=== PATIENT | male | born 1980 ===

== ENCOUNTER 2017-04-09 00:18 | Observation (INO) | payer MEDICAID ==
[2017-04-09 00:18] VITALS: BMI 31.1
[2017-04-09 00:33] VITALS: RESP 16; TEMP 98.8
--- NOTE | 2017-04-09 00:52 | C.PDOC ---
History Of Present Illness 36 year old male who presents to the ER stating "I am here to turn myself in". Patient states he escaped from [facility] today after being told he was going to be put in a locked unit and did not like it. Patient was admitted for suicidal attempt, he claims he has been there for months and he has always been able to leave to get a cigarette. However, today the staff was trying to find him and when they did they told him he would have to be detained in a locked unit due to elopement. Patient states he is here to turn himself in and is willing to return to [place], even to a locked unit. Patient notes he "still doesn't feel right", but denies any recent suicide attempt. Time Seen by Provider: 04/09/17 00:36 Chief Complaint (Nursing): Psychiatric Evaluation History Per: Patient History/Exam Limitations: no limitations Onset/Duration Of Symptoms: Days Current Symptoms Are (Timing): Still Present Suicide/Self Injury Attempted (Context): None Associated Symptoms: denies: Depression, Suicidal Thoughts, Suicidal Plan Involuntary Hold By: None Recent travel outside of the [place]: No Past Medical History Reviewed: Historical Data, Nursing Documentation, Vital Signs Vital Signs: Last Vital Signs Temp 98.8 F 04/09/17 00:30 Pulse 104 H 04/09/17 00:30 Resp 16 04/09/17 00:30 BP 130/85 04/09/17 00:30 Pulse Ox 98 04/09/17 02:26 - Medical History PMH: Anxiety, Bipolar Disorder, Depression, HTN, Hypercholesterolemia, Schizophrenia Surgical History: Appendectomy (30 years ago) - [facility] Procedures GROUP EYEGLASS FRAMES POLISHER FOR SUBSTANCE ABUSE TREATMENT, PSYCHOEDUCATION (09/15/16) GROUP PSYCHOTHERAPY (09/15/16) INDIVID PSYCHOTHERAP NEC (11/09/14) INDIVIDUAL PSYCHOTHERAPY, SUPPORTIVE (09/15/16) MEDICATION MANAGEMENT (09/27/16) MEDS MGMT FOR SUBSTANCE ABUSE TREATMENT, OTH REPL MED (09/15/16) OTHER GROUP THERAPY (11/09/14) PSYCHIAT DRUG THERAP NEC (11/09/14) SUPPOR VERBAL PSYCHOTHER (02/20/13) Family History: States: Unknown Family Hx - Social History Hx Tobacco Use: Yes (1 ppd) Hx Alcohol Use: Yes Hx Substance Use: No - Immunization History Hx Tetanus Toxoid Vaccination: No Hx Influenza Vaccination: No Hx Pneumococcal Vaccination: No Review Of Systems Constitutional: Negative for: Fever, Chills Gastrointestinal: Negative for: Nausea, Vomiting, Diarrhea Psych: Negative for: Suicidal ideation Physical Exam - Physical Exam Appears: Non-toxic, No Acute Distress Skin: Normal Color, Warm, Dry Head: Atraumatic, Normacephalic Oral Mucosa: Moist Chest: Symmetrical, No Tenderness Cardiovascular: Rhythm Regular, No Murmur Respiratory: Normal Breath Sounds, No Rales, No Rhonchi, No Wheezing Gastrointestinal/Abdominal: Soft, No Tenderness Neurological/Psych: Oriented x3, Normal Speech, Normal Cognition ED Course And Treatment O2 Sat by Pulse Oximetry: 98 (Room air) Pulse Ox Interpretation: Normal Medical Decision Making Medical Decision Making: Plan: * Blood work ED OBSERVATION Date of observation admission: 04/09/17 Time of observation admission: 00:45 - Observation admission statement Patient is being placed in observation because:: SUICIDAL IDEATION - Goals of Observation Goals of observation are:: PSYCH EVAL - Progress Note Progress Note: 04/09/17 00:51 D/W CRISIS WILL EVAL IN ER 04/09/17 03:29 D/W CRISIS PT TO BE PICKED UP BY [facility] DC IN [facility] 04/09/17 03:33 Disposition Counseled Patient/Family Regarding: Studies Performed, Diagnosis - Disposition Disposition: HOME/ ROUTINE Disposition Time: 04:30 Condition: STABLE - Clinical Impression Clinical Impression: Schizoaffective disorder - Scribe Statement The provider has reviewed the documentation as recorded by the Scribyordy Lopez All medical record entries made by the Chinoibyordy were at my direction and personally dictated by me. I have reviewed the chart and agree that the record accurately reflects my personal performance of the history, physical exam, medical decision making, and the department course for this patient. I have also personally directed, reviewed, and agree with the discharge instructions and disposition.
[2017-04-09 01:43] LABS: RBC URINE < 1 /hpf (0-3); URINE BILIRUBIN NEGATIVE (NEGATIVE); URINE BLOOD NEGATIVE (NEGATIVE); URINE COLOR Yellow (YELLOW); URINE GLUCOSE (UA) NORMAL (Normal); URINE KETONE NEGATIVE (NEGATIVE); URINE LEUKOCYTE ESTERASE NEG Leu/uL (Negative); URINE PROTEIN NEGATIVE (NEGATIVE); URINE UROBILINOGEN NORMAL mg/dL (0.2-1.0); WBC URINE 1 /hpf (0-5)
[2017-04-09 04:22] VITALS: BP 111/72; PULSE 82; O2SAT 97
== END 2017-04-09 04:23 | disposition home or self-care (01) ==
LOC: C.ER 00:18 → C.9OBSV 00:45
PROVIDERS: ADMIT Emergency Medicine; ATTEND Emergency Medicine
DX: F25.9 Schizoaffective disorder, unspecified (principal); I10 Essential (primary) hypertension; F31.9 Bipolar disorder, unspecified; E78.00 Pure hypercholesterolemia, unspecified; F41.9 Anxiety disorder, unspecified; F17.210 Nicotine dependence, cigarettes, uncomplicated
CPT/HCPCS: 80324; 80345; 80346; 80349; 80353; 80358; 80361; 81001; 83992; 99284; G0378

== ENCOUNTER → 2017-05-29 05:09 | Emergency (ER) | payer MEDICAID ==
[2017-05-29 05:09] VITALS: BMI 31.1
== END | disposition left against medical advice (07) ==
LOC: C.ER 05:09
DX: Z02.89 Encounter for other administrative examinations (principal); Z00.8 Encounter for other general examination

== ENCOUNTER 2017-06-02 00:23 | Emergency (ER) | payer MEDICAID ==
[2017-06-02 00:23] VITALS: BMI 31.1
[2017-06-02 01:51] LABS: BASO # 0.1 K/uL (0.0-0.2); BASO % 0.8 % (0.0-2.0); EOS # 0.1 K/uL (0.0-0.7); EOS % 0.9 % (0.0-4.0); HEMATOCRIT 42.8 % (35.0-51.0); LYMPH # 3.2 K/uL (1.0-4.3); LYMPH % 25.3 % (20.0-40.0); MEAN CELL VOLUME 83.3 fL (80.0-94.0); MEAN CORPUSCULAR HEMOGLOBIN 28.8 pg (27.0-31.0); MEAN CORPUSCULAR HGB CONC 34.6 g/dL (33.0-37.0); MEAN PLATELET VOLUME 8.6 fL (7.2-11.7); MONO # 0.7 K/uL (0.0-0.8); MONO % 5.7 % (0.0-10.0); RED CELL DISTRIBUTION WIDTH 13.6 % (11.5-14.5); WHITE BLOOD COUNT 12.7 K/uL (4.8-10.8)
[2017-06-02 02:14] LABS: CHLORIDE 103 mmol/L (98-107)
[2017-06-02 02:15] LABS: POTASSIUM 3.6 mmol/L (3.6-5.2); SODIUM 141 mmol/L (132-148)
[2017-06-02 02:17] LABS: ALB/GLOB RATIO 1.2 (1.0-2.1); ALKALINE PHOSPHATASE 52 U/L (38-126); ALT/SGPT 71 U/L (21-72); AST/SGOT 96 U/L (17-59); BILIRUBIN,TOTAL 0.8 mg/dL (0.2-1.3); BLOOD UREA NITROGEN 12 mg/dL (9-20); CARBON DIOXIDE 20 mmol/L (22-30); GFR AFRICAN-AMERICAN > 60; GLUCOSE,RANDOM 117 mg/dL (75-110); TOTAL PROTEIN 8.3 g/dL (6.3-8.3)
[2017-06-02 02:18] LABS: ALCOHOL SERUM 136 mg/dl (0-10); CALCIUM 9.2 mg/dl (8.6-10.4)
[2017-06-02 03:04] VITALS: TEMP 98.8
[2017-06-02 03:37] LABS: RBC URINE < 1 /hpf (0-3); URINE BILIRUBIN NEGATIVE (NEGATIVE); URINE BLOOD NEGATIVE (NEGATIVE); URINE COLOR Yellow (YELLOW); URINE GLUCOSE (UA) NORMAL (Normal); URINE KETONE TRACE mg/dL (NEGATIVE); URINE LEUKOCYTE ESTERASE NEG Leu/uL (Negative); URINE PROTEIN NEGATIVE (NEGATIVE); URINE UROBILINOGEN NORMAL mg/dL (0.2-1.0); WBC URINE < 1 /hpf (0-5)
[2017-06-02 05:49] VITALS: BP 138/82; PULSE 123; RESP 18; O2SAT 95
--- NOTE | 2017-06-02 06:07 | C.PDOC ---
Time Seen by Provider: 06/02/17 00:33 Chief Complaint (Nursing): Psychiatric Evaluation History Per: Patient, EMS Onset/Duration Of Symptoms: Unknown (tonight) Current Symptoms Are (Timing): Still Present Suicide/Self Injury Attempted (Context): None Modifying Factor(s): Alcohol Severity: Moderate Associated Symptoms: Agitation Additional History Per: Prior Records Past Medical History Reviewed: Historical Data, Nursing Documentation, Vital Signs Vital Signs: Last Vital Signs Temp 98.8 F 06/02/17 03:04 Pulse 123 H 06/02/17 05:47 Resp 18 06/02/17 05:47 BP 138/82 06/02/17 05:47 Pulse Ox 95 06/02/17 05:47 - Medical History PMH: Anxiety, Bipolar Disorder, Depression, HTN, Hypercholesterolemia, Schizophrenia Surgical History: Appendectomy (30 years ago) - [facility] Procedures GROUP ARMY MANAGER FOR SUBSTANCE ABUSE TREATMENT, PSYCHOEDUCATION (09/15/16) GROUP PSYCHOTHERAPY (09/15/16) INDIVID PSYCHOTHERAP NEC (11/09/14) INDIVIDUAL PSYCHOTHERAPY, SUPPORTIVE (09/15/16) MEDICATION MANAGEMENT (09/27/16) MEDS MGMT FOR SUBSTANCE ABUSE TREATMENT, OTH REPL MED (09/15/16) OTHER GROUP THERAPY (11/09/14) PSYCHIAT DRUG THERAP NEC (11/09/14) SUPPOR VERBAL PSYCHOTHER (02/20/13) Family History: States: Unknown Family Hx - Social History Hx Tobacco Use: Yes (1 ppd) Hx Alcohol Use: Yes Hx Substance Use: Yes - Immunization History Hx Tetanus Toxoid Vaccination: No Hx Influenza Vaccination: No Hx Pneumococcal Vaccination: No Review Of Systems Except As Marked, All Systems Reviewed And Found Negative. Constitutional: Negative for: Fever Cardiovascular: Negative for: Chest Pain Respiratory: Negative for: Shortness of Breath Gastrointestinal: Negative for: Vomiting, Abdominal Pain Musculoskeletal: Negative for: Neck Pain Neurological: Negative for: Weakness, Numbness, Seizures Physical Exam - Physical Exam Appears: Non-toxic, No Acute Distress, Agitated Skin: Normal Color, Warm, Dry, No Rash Head: Atraumatic, Normacephalic Eye(s): bilateral: PERRL Neck: Normal ROM, Supple Cardiovascular: Rhythm Regular Respiratory: Normal Breath Sounds, No Accessory Muscle Use Gastrointestinal/Abdominal: Soft, No Tenderness Extremity: Normal ROM, No Deformity Neurological/Psych: Oriented x3, Normal Motor, Normal Sensation ED Course And Treatment - Laboratory Results Result Diagrams: 06/02/17 01:48 06/02/17 01:48 ECG: Interpreted By Me, Viewed By Me ECG Rhythm: Sinus Tachycardia, Nonspecific Changes Rate From EC O2 Sat by Pulse Oximetry: 95 Pulse Ox Interpretation: Normal Progress Note: After medication pt is now improved. Pt was evaluated by the tail board worker who d/w Dr. Nguyen, they psychiatrically cleared pt for discharge. Reassessment Condition: Improved Disposition Counseled Patient/Family Regarding: Studies Performed, Diagnosis, Need For Followup - Disposition Disposition: HOME/ ROUTINE Disposition Time: 06:09 Condition: STABLE Additional Instructions: Follow up with outpatient mental health. Return to the ER if you develop suicidal or homicidal thoughts, worsening of symptoms or if you have any other concerns. Instructions: Alcohol Intoxication (ED) Forms: [facility] ([place]) - Clinical Impression Clinical Impression: Alcohol intoxication, Agitation
--- NOTE | 2017-06-03 23:14 | CARD ---
APPROVED REPORT EKG Measurement Heart [id number] <Conclusion> Sinus tachycardia Nonspecific T wave abnormality Abnormal ECG
== END 2017-06-02 06:21 | disposition home or self-care (01) ==
LOC: C.ER 00:23
DX: F10.129 Alcohol abuse with intoxication, unspecified (principal); Y90.6 Blood alcohol level of 120-199 mg/100 ml; R45.1 Restlessness and agitation
CPT/HCPCS: 80053; 80320; 80324; 80329; 80345; 80346; 80349; 80353; 80358; 80361; 81001; 83992; 85025; 93005; 96372; 99285; J1630; J2060

== ENCOUNTER 2017-06-04 03:32 | Emergency (ER) | payer MEDICAID ==
[2017-06-04 03:33] VITALS: BMI 31.1
[2017-06-04 05:22] VITALS: RESP 16; TEMP 98.4; O2SAT 97
[2017-06-04 06:09] VITALS: BP 139/94; PULSE 109
--- NOTE | 2017-06-04 06:42 | C.PDOC ---
History Of Present Illness 36 y/o male with PMHx of Bipolar disorder and schizophrenia presents to ED with complaints of feeling anxious. Patient denies suicidal ideation, homicidal ideation, hallucinations or any other complaints at this time. Chief Complaint (Nursing): Psychiatric Evaluation History Per: Patient History/Exam Limitations: no limitations Onset/Duration Of Symptoms: Days Current Symptoms Are (Timing): Still Present Suicide/Self Injury Attempted (Context): None Modifying Factor(s): None Associated Symptoms: Anxiety Past Medical History Reviewed: Historical Data, Nursing Documentation, Vital Signs Vital Signs: Last Vital Signs Temp 98.4 F 06/04/17 05:17 Pulse 109 H 06/04/17 06:09 Resp 16 06/04/17 05:17 BP 139/94 H 06/04/17 06:09 Pulse Ox 97 06/04/17 06:42 - Medical History PMH: Anxiety, Bipolar Disorder, Depression, HTN, Hypercholesterolemia, Schizophrenia Surgical History: Appendectomy (30 years ago) - [facility] Procedures GROUP GENERAL UTILITY MAINTENANCE REPAIRER FOR SUBSTANCE ABUSE TREATMENT, PSYCHOEDUCATION (09/15/16) GROUP PSYCHOTHERAPY (09/15/16) INDIVID PSYCHOTHERAP NEC (11/09/14) INDIVIDUAL PSYCHOTHERAPY, SUPPORTIVE (09/15/16) MEDICATION MANAGEMENT (09/27/16) MEDS MGMT FOR SUBSTANCE ABUSE TREATMENT, OTH REPL MED (09/15/16) OTHER GROUP THERAPY (11/09/14) PSYCHIAT DRUG THERAP NEC (11/09/14) SUPPOR VERBAL PSYCHOTHER (02/20/13) Family History: States: No Known Family Hx - Social History Hx Tobacco Use: Yes (1 ppd) Hx Alcohol Use: Yes Hx Substance Use: No - Immunization History Hx Tetanus Toxoid Vaccination: No Hx Influenza Vaccination: No Hx Pneumococcal Vaccination: No Review Of Systems Constitutional: Negative for: Fever, Chills Cardiovascular: Negative for: Chest Pain Respiratory: Negative for: Shortness of Breath Gastrointestinal: Negative for: Nausea, Vomiting Skin: Negative for: Rash Neurological: Negative for: Weakness, Numbness Psych: Positive for: Anxiety. Negative for: Suicidal ideation Physical Exam - Physical Exam Appears: Non-toxic, No Acute Distress Skin: Normal Color, Warm, Dry, No Rash Head: Atraumatic, Normacephalic Oral Mucosa: Moist Neck: Normal ROM, Supple Chest: Symmetrical Cardiovascular: Rhythm Regular Respiratory: Normal Breath Sounds, No Rales, No Rhonchi, No Wheezing Back: No CVA Tenderness Neurological/Psych: Oriented x3 ED Course And Treatment O2 Sat by Pulse Oximetry: 97 (RA) Pulse Ox Interpretation: Normal Medical Decision Making Medical Decision Making: Patient evaluated by crisis Disposition - Disposition Disposition: HOME/ ROUTINE Disposition Time: 05:50 Condition: GOOD Additional Instructions: Thank you for letting us take care of you today. The emergency medical care you received today was directed at your acute symptoms. If you were prescribed any medication, please fill it and take as directed. It may take several days for your symptoms to resolve. Return to the Emergency Department if your symptoms worsen, do not improve, or if you have any other problems. Please contact your doctor or call one of the physicians/clinics you have been referred to that are listed on the Patient Visit Information form that is included in your discharge packet. Bring any paperwork you were given at discharge with you along with any medications you are taking to your follow up visit. Our treatment cannot replace ongoing medical care by a primary care provider (PCP) outside of the emergency department. Thank you for allowing the [facility] team to be part of your care today. Follow up with [facility] program as scheduled. Instructions: Generalized Anxiety Disorder (ED) Forms: [employer] ([place]) - Clinical Impression Clinical Impression: Bipolar 1 disorder - Scribe Statement The provider has reviewed the documentation as recorded by the Diane Gregg All medical record entries made by the Chinoibyordy were at my direction and personally dictated by me. I have reviewed the chart and agree that the record accurately reflects my personal performance of the history, physical exam, medical decision making, and the department course for this patient. I have also personally directed, reviewed, and agree with the discharge instructions and disposition.
== END 2017-06-04 06:11 | disposition home or self-care (01) ==
LOC: C.ER 03:32
DX: F31.9 Bipolar disorder, unspecified (principal)

== ENCOUNTER 2018-01-15 00:11 | Emergency (ER) | payer MEDICAID ==
[2018-01-15 00:12] VITALS: BMI 31.1
[2018-01-15 00:28] VITALS: RESP 20
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
[2018-01-15 01:55] VITALS: BP 123/82; PULSE 100; TEMP 98.9
[2018-01-15 05:49] VITALS: O2SAT 95
== END 2018-01-15 01:58 | disposition home or self-care (01) ==
LOC: C.ER 00:11
DX: S00.03XA Contusion of scalp, initial encounter (principal); Y09 Assault by unspecified means; Y92.480 Sidewalk as the place of occurrence of the external cause